=== PATIENT | male | born 1935 | race Caucasian/White ===

== ENCOUNTER 2024-08-23 09:39 | Inpatient (IN) | payer MEDICARE, OTHER, SELFPAY ==
[2024-08-23] VITALS (17 sets, daily range): BP systolic 120–159; BP diastolic 78–93; BMI 25.9
--- NOTE | 2024-08-23 03:55 | ED.GENMED ---
History of Present Illness
General
Chief Complaint: Breathing Problem
Source: patient
Exam Limitations: none
Time Seen by Provider: 08/23/24 03:52
Nursing documentation reviewed up to this point in time: agreed with
History of Present Illness
History of Present Illness:
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
With patient's history of interstitial pneumonitis, patient is on 2 L of oxygen at all times. He follows with a predatory animal trapper in [place]. Patient reports that he is getting ready for bed when he suddenly started to feel anxious and felt
tremors and look down at his pulse ox and noticed that his pulse ox was 80%. He felt woozy nauseous at this time as well. He denies any syncopal episodes patient states that his baseline pulse ox is usually 90 to 92% on room air. Patient denies
any sensation of shortness of breath at this time or chest pain. Patient states that in general he just feels off. Of note, patient is currently being weaned down on steroids. Patient was being weaned from 20 to 10 mg of prednisone however he
started to be symptomatic with this and thus he was returned to his 20 mg daily.
Past History
Past History
ED Past Medical History: HTN and Hypercholesterolemia
Social History
Tobacco: Non-smoker
Employment: Retired
Review of Systems
Review of Systems
All Other Systems: ROS reviewed and negative except as documented in HPI and ROS
Phy Exam
Physical Exam
Physical Exam:
General: Patient is well appearing and in no acute distress; non-toxic
Skin: Warm and dry, no rashes or lesions
Head: Normocephalic, atraumatic
Eyes: Sclera non-icteric. EOMs intact. PERRLA.
Cardiac: Regular rate and rhythm, no murmur
Peripheral Vascular: No lower extremity swelling or edema
Pulm: Increased respiratory rate, crackles heard throughout
Abdomen: No abdominal tenderness to palpation
Neuro: CN II-XII intact, no focal neurologic deficits.
Psychiatric: Appropriate mood and affect.
Scores
Heart Failure Risk
Heart Failure Risk Score: Not Applicable
Course
Orders/Labs/Results
Orders:
Orders
08/23/24 03:49
Electrocardiogram (*1) Urgent
Reason for Study: Shortness of Breath
08/23/24 03:50
EKG- Treatment ONCE
CXR2 [CR Chest - 2 Views ] Urgent
Comment:
Reason For Exam: shortness of breath
08/23/24 03:58
CMP [Comprehensive Metabolic Panel] Urgent
COVID-19 Antigen Urgent
Source: Nasal Swab
Complete Blood Count/With Diff Urgent
Troponin I Urgent
INF RAPID [Influenza A+B Rapid Molecular] Urgent
ANN Source: Nasal Swab
Specimen Description:
08/23/24 04:19
pacemaker [Interrogate Pacemaker- Treatment] ONCE
08/23/24 05:55
CT Chest PE Study Urgent
Comment:
Reason For Exam: hypoxia, hx of interstitial lung disease
Abnormal Lab Results
08/23/24
03:58
WBC 11.5 H 10^3/uL
(4.8-10.8)
RBC 4.49 L 10^6/uL
(4.70-6.10)
MCH 31.6 H pg
(27.0-31.0)
MPV 10.9 H fL
(7.4-10.4)
Abs Immat Gran (auto) 0.3 H 10^3/uL
(0-0.05)
Absolute Neuts (auto) 8.0 H 10^3/uL
(1.4-6.5)
Absolute Monos (auto) 0.8 H 10^3/uL
(0.1-0.6)
Immature Gran % 2.3 H %
(0-0.5)
Lymphocytes % 20.2 L %
(20.5-51.1)
BUN 26 H mg/dl
(9-20)
Glucose 129 H mg/dl
(70-99)
08/23/24 03:58
08/23/24 03:58
Vital Signs
Initial and Last Documented VS:
Initial Vital Signs
Temp Pulse Resp BP Pulse Ox
98.1 F 78 24 150/86 92
08/23/24 03:21 08/23/24 03:21 08/23/24 03:21 08/23/24 03:21 08/23/24 03:21
Last Documented Vital Signs
Temp Pulse Resp BP Pulse Ox
98.3 F 64 15 139/89 94
08/23/24 04:00 08/23/24 06:43 08/23/24 06:43 08/23/24 06:43 08/23/24 06:43
MDM/Problems Addressed
Differential Diagnosis Includes:
Differentials include pneumonia, PE, progressive interstitial disease, dysrhythmia
MDM/Problems Addressed:
89-year-old male presents emergency department today with concerns of shortness of breath when ambulating and feeling of nausea and anxiety when changing positions. Does have a history of interstitial lung disease and is on daily prednisone and is
on 2 L of oxygen at baseline. On physical exam he appears comfortable however when we do ambulate him his pulse ox does drop to the 70s and 80s percent on his usual 2 to 3 L. [employer] report does not show any evidence of new dysrhythmia, troponin
undetectable. CT scan negative for pneumonia or PE however in light of significant new change, inability to do ADLs, pulmonology appointment multiple weeks away, will admit for further evaluation and assessment. Patient referred for admission.
Case discussed with attending
*Pulse Oximetry
Patient hypoxic: yes
*EKG
Interpreted by ED Provider?: Yes
EKG Intrepretation Date: 08/23/24
Interpretation: abnormal
Comparison EKG: changes noted
Heart Rate: 65
Rate: normal
Interval: normal QT interval and other (Bifascicular block)
*Critical Care Note
Total Time (30-74mins, 75-104mins- exclusive of procedures): Not Applicable
Data Reviewed
Review of Other/Old Records Reveals: Records (Reviewed [employer], no previous discharge summary, reviewed ER physician mentation from 09/15/2009 patient seen for palpitations)
Source: patient and records
ED Attending Note
-
Portions of this chart may have been created with voice recognition software.� Occasional wrong word or��sound alike� substitutions may have occurred due to the inherent limitations of voice recognition software.
Discharge Plan
Departure
Patient Disposition: Admit
Date of Disposition: 08/23/24
Time of Disposition: 07:45
Admit to: Med/Surg
Presentation/result/management discussed w/ accepting MD/DO: Hospitalist
Patient with high blood pressure during this ER visit?: No
Condition: Fair
Discharge Problem:
Interstitial pneumonitis, Hypoxia
Prescriptions:
No Action
atorvastatin 40 MG tablet
40 mg PO QPM
atenolol [Tenormin] 100 MG tablet
100 mg PO DAILY
aspirin 81 MG tablet,delayed release (DR/EC)
81 mg PO DAILY
diltiazem HCl [Cardizem] 120 mg Tablet
120 mg PO BID
Eliquis 5 mg Tablet
5 mg PO BID
Referrals:
Don Ward MD [Family Provider] -
Interventions
Interventions:
*Risk Screen - Suicide Last Done: 08/23/24 03:21
*General Assessment Last Done: 08/23/24 03:53
*Neglect/Abuse Screening Last Done: 08/23/24 03:21
*ED- Fall Risk Assessment Last Done: 08/23/24 03:53
*ED COVID-19 Vaccine History Last Done: 08/23/24 03:53
ED-Skin Assessment Last Done: 08/23/24 03:50
ED- Pulmonary Assessment Last Done: 08/23/24 03:50
ED-Psychological Assessment Last Done: 08/23/24 03:50
ED-EENT Assessment Last Done: 08/23/24 03:50
ED- Cardiac Assessment Last Done: 08/23/24 03:50
Discharge Date and Time
Print Language: GEORGIAN
[2024-08-23 04:16] LABS: % Basophils 0.5 % (0-2); % Eosinophils 0.9 % (0-6); % Immature Granulocytes 2.3 % (0-0.5); % Lymphocytes 20.2 % (20.5-51.1); % Monocytes 6.6 % (1.7-9.3); % Neutrophils 69.5 % (42.2-75.2); Absolute Basophils 0.1 10^3/uL (0-0.2); Absolute Eosinophils 0.1 10^3/uL (0-0.7); Absolute Immature Granulocytes 0.3 10^3/uL (0-0.05); Absolute Lymphocytes 2.3 10^3/uL (1.2-3.4); Absolute Monocytes 0.8 10^3/uL (0.1-0.6); Hemoglobin 14.2 g/dL (13.0-18.0); Mean Corp Hgb Conc. 34.6 g/dL (33.0-37.0); Mean Corpuscular Hgb 31.6 pg (27.0-31.0); Mean Corpuscular Volume 91.3 fL (80.0-94.0); Mean Platelet Volume 10.9 fL (7.4-10.4); Nucleated Red Blood Cells % 0 % (-); Platelet Count 203 10^3/uL (130-400); Red Blood Cell Count 4.49 10^6/uL (4.70-6.10); Red Cell Dist. Width 13.2 % (11.5-14.5); White Blood Cell Count 11.5 10^3/uL (4.8-10.8)
[2024-08-23 04:24] LABS: COVID-19 Antigen Negative (Negative)
[2024-08-23 04:36] LABS: ALT (SGPT) 31 U/L (0-50); AST (SGOT) 22 U/L (17-59); Albumin 3.9 g/dl (3.5-5.0); Alkaline Phosphatase 63 U/L (38-126); Blood Urea Nitrogen 26 mg/dl (9-20); Calcium 9.9 mg/dl (8.4-10.2); Carbon Dioxide 26 mmol/L (22-30); Chloride 106 mmol/L (98-107); Estimated Creatinine Clearance 60 ml/min; Glucose 129 mg/dl (70-99); Potassium 4.1 mmol/L (3.5-5.1); Sodium 142 mmol/L (135-145); Total Bilirubin 0.6 mg/dl (0.2-1.3); Total Protein 6.9 g/dl (6.3-8.2); eGFR > 60.00
[2024-08-23 04:48] LABS: Troponin I < 0.012 ng/ml
--- NOTE | 2024-08-23 07:44 | EDRN ---
this RN noticed that the pt was 90% on 2L NC, this RN entered the pts room and the pt has no c/o SOB, no c/o chest pain, this RN notified the provider and titrated the pts 02 from 2L to 4L NC, Sp02 currently 98%
--- NOTE | 2024-08-23 09:00 | HPS.HSE ---
Family Physician
-
Family Physician: Don Ward
Chief Complaint
-
Dyspnea on exertion
History of Present Illness
Mr. Brady is a 89-year-old male with a medical history of paroxysmal A-fib (previously on amiodarone which was discontinued in February 2024 due to possible contribution to ILD, AC with Eliquis), permanent pacemaker, interstitial lung disease (2 L
O2 at baseline), and hypertension who presented from home with dyspnea on exertion. He had been on low-dose amiodarone for approximately 8 years for A-fib which was discontinued in February 2024 its possible contribution to his development of
interstitial lung disease. He has been on a slow tapering dose of prednisone since that time with input from his shower attendant in [place], [place] (Dr. Ward). He began feeling fatigued once he was tapered down to 10 mg of prednisone every
other day and so his prednisone dose was increased back to 20 mg daily. Over the past week he has been increasingly dyspneic with minimal exertion. His pulse ox had been dipping to the high 80s on 2 L oxygen but recovered quickly with rest and
increasing his flow rate. He has an appointment with his shower attendant in 2 weeks but does not feel he could wait until then for further evaluation. 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
In the ED, he has remained normotensive and his pulse ox has remained in the mid 90s on increased rate of 4 L via nasal cannula. He has a mild leukocytosis of 11.5 likely due to chronic steroid use, and has labs are otherwise unremarkable. CT
imaging of his chest shows moderate inflammatory interstitial pneumonitis in the periphery of both lungs. He has been admitted for further evaluation and management of acute on chronic respiratory failure with hypoxia in the setting of interstitial
lung disease flare.
Medical History
Past Medical History
Past Medical History: Reports Arrhythmia (A-fib, permanent pacemaker), HTN and Other (Interstitial lung disease)
Past Surgical History: Reports Urological (Bladder surgery)
Social History
Tobacco: Non-smoker
Alcohol: Occasional
Drug: None
Personal:
Living: With Family
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
Family History
Family History: Not pertinent
Allergies / Home Medications
Allergies reflects when Allergies were last updated in [email or web address].
Home Medications with original date entered in [email or web address]
Allergy/Medication List:
Allergies
Allergy/AdvReac Type Severity Reaction Status Date / Time
No Known Allergies Allergy Unverified 09/15/09 00:32
Home Medications
aspirin 81 mg tablet,delayed release 81 mg PO DAILY 09/15/09
atorvastatin 40 mg tablet 40 mg PO QPM 09/15/09
apixaban 5 mg tablet (Eliquis) 5 mg PO BID 08/23/24
atenolol 50 mg tablet 50 mg PO DAILY 08/23/24
diltiazem HCl 120 mg tablet (Cardizem) 120 mg PO BID 08/23/24
prednisone 10 mg tablet 20 mg PO DAILY 08/23/24
Review of Systems
-
History Source: Patient
A 12 point ROS was completed and negative except as noted: Yes
Respiratory: Reports Trouble Breathing (Dyspnea with minimal exertion)
Physical Exam
Vital Signs
Vital Signs
Temp Pulse Resp BP Pulse Ox
98.3 F 64 15 139/89 94
08/23/24 04:00 08/23/24 06:43 08/23/24 06:43 08/23/24 06:43 08/23/24 06:43
Physical Exam
General: No Apparent Distress
Laboratory Results
-
08/23/24 03:58
08/23/24 03:58
Laboratory Results
Total Bilirubin 0.6 mg/dl (0.2-1.3) 08/23/24 03:58
AST 22 U/L (17-59) 08/23/24 03:58
ALT 31 U/L (0-50) 08/23/24 03:58
Alkaline Phosphatase 63 U/L (38-126) 08/23/24 03:58
Troponin I < 0.012 ng/ml 08/23/24 03:58
Impression/Plan
-
General: No Apparent Distress, Comfortable and Conversant
HEENT: NormoCephalic, Moist mucous membranes, nasal cannula in place
Respiratory: Non Labored Respirations, inspiratory crackles bilaterally
Cardiac: S1/S2 and Regular Rhythm; No Rub or Gallop
GI: Soft, Non Tender, Non Distended and Normal Bowel Sounds
Musculoskeletal: No Edema, no deformity
Skin: Warm and dry
: NO Harris
Neuro: Awake, Alert, Nonfocal/grossly intact
Psych: Calm and Intact Judgment/Insight
Mr. Brady is a 89-year-old male with a medical history of paroxysmal A-fib (previously on amiodarone which was discontinued in February 2024 due to possible contribution to ILD, AC with Eliquis), permanent pacemaker, interstitial lung disease (2 L
O2 at baseline), and hypertension who presented from home with dyspnea on exertion. He had been on low-dose amiodarone for approximately 8 years for A-fib which was discontinued in February 2024 its possible contribution to his development of
interstitial lung disease. He has been on a slow tapering dose of prednisone since that time with input from his shower attendant in [place], [place] (Dr. Ward). He began feeling fatigued once he was tapered down to 10 mg of prednisone every
other day and so his prednisone dose was increased back to 20 mg daily. Over the past week he has been increasingly dyspneic with minimal exertion. His pulse ox had been dipping to the high 80s on 2 L oxygen but recovered quickly with rest and
increasing his flow rate. He has an appointment with his shower attendant in 2 weeks but does not feel he could wait until then for further evaluation. 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
In the ED, he has remained normotensive and his pulse ox has remained in the mid 90s on increased rate of 4 L via nasal cannula. He has a mild leukocytosis of 11.5 likely due to chronic steroid use, and has labs are otherwise unremarkable. CT
imaging of his chest shows moderate inflammatory interstitial pneumonitis in the periphery of both lungs. He has been admitted for further evaluation and management of acute on chronic respiratory failure with hypoxia in the setting of interstitial
lung disease flare.
Acute on chronic respiratory failure with hypoxia:
- Suspect secondary to flare of interstitial lung disease
- Supplemental oxygen now with 4 L via nasal cannula, he uses 2 L at baseline, titrate as able to maintain O2 sats greater than 94%
- Pulmonology consult
- Prednisone 20 mg daily for now
Interstitial lung disease with acute flare:
- Plan as above
Paroxysmal A-fib:
- Continue rate control with diltiazem
- Anticoagulation with Eliquis
Hypertension:
- Continue home atenolol 50 mg daily
CODE STATUS: Full code
--- NOTE | 2024-08-23 10:37 | EDRN ---
this RN processed admission orders for the pt and notified the pharmacy
--- NOTE | 2024-08-23 11:13 | CON.PUL ---
Consultation
Consultation Request
Date/Time Consultation Requested: 08/23/2024
Date/Time Consultation Performed: 08/23/2024
Requesting Provider: Anthony Saucedo
Performing Provider: Saji Hinds
Reason for Consultation: Shortness of breath
Medical History
-
Chief Complaint: Dyspnea
History of Present Illness:
Patient is a very pleasant 89-year-old gentleman with known history of paroxysmal A-fib, chronically had been on anticoagulation and amiodarone up until February 2024. Patient reportedly developed a cough and shortness of breath with hypoxia in
February 2024 which required a hospitalization. He was suspected to have interstitial lung disease related to amiodarone. Amiodarone was subsequently discontinued. He follows up with a hotel reservation agent in [place] in [place]. Patient reports that
he has had extensive workup in the past including connective tissue panel, eosinophil count and other studies. 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 Patient reports he was
started on 40 mg of prednisone with good improvement in his symptoms which was subsequently tapered to 30 and then eventually 20 mg. Once he dropped below to 10 mg every other day his symptoms started to worsen again and he was switched back to 20
of prednisone daily. Over the last week patient reports some increased dyspnea minimal change in cough without any expectoration. Yesterday he found himself to be hypoxic with oxygen saturation in mid 80s along with some tremors and anxiety. This
led to an emergency room evaluation where he was noted to be hypoxic requiring oxygen supplementation. He had a CT which was suggestive of NSIP pattern. Pulmonary consultation was requested for further input.
Patient has no known pulmonary disease. No prior history of asthma, emphysema or COPD. He smoked very briefly many decades ago. No reported history of marijuana or vaping. Patient has dogs at home but no exposure to birds. Has a swimming pool
but does not report any exposure to hot tub. No reported occupational exposure other than formaldehyde. 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 No family history of cystic fibrosis interstitial lung disease or IPF.
Past Medical History: Reports Arrhythmia (A-fib, permanent pacemaker), HTN and Other (Interstitial lung disease)
Past Surgical History: Reports Urological (Bladder surgery)
Social History
Tobacco: Non-smoker. 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
Alcohol: Occasional
Drug: None
Personal:
Living: With Family
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
Family History
Family History: Not pertinent
Allergies / Home Medications
Allergies reflects when Allergies were last updated in [facility].
Allergies / Home Medications
Allergies
Allergy/AdvReac Type Severity Reaction Status Date / Time
No Known Allergies Allergy Unverified 09/15/09 00:32
Home Medications
�Medication �Instructions �Recorded �Confirmed �Last Taken �Type
aspirin 81 mg tablet,delayed 81 mg PO DAILY 09/15/09 08/23/24 09/14/09 History
release
atorvastatin 40 mg tablet 40 mg PO QPM 09/15/09 08/23/24 09/14/09 History
apixaban 5 mg tablet (Eliquis) 5 mg PO BID 08/23/24 08/23/24 08/22/24 History
atenolol 50 mg tablet 50 mg PO DAILY 08/23/24 08/23/24 08/22/24 History
diltiazem HCl 120 mg 120 mg PO BID 08/23/24 08/23/24 Unknown History
capsule,extended release 24 hr
prednisone 10 mg tablet 20 mg PO DAILY 08/23/24 08/23/24 08/22/24 History
Review of Systems
-
Hematologic/Lymphatic: Other (All 14 systems reviewed and negative except as stated above in the history of present illness.)
Vitals / Labs / Diagnostic Testing
Vital Signs
Temp Pulse Resp BP Pulse Ox
98.3 F 60 20 120/79 97
08/23/24 04:00 08/23/24 10:30 08/23/24 10:00 08/23/24 10:00 08/23/24 10:30
Lab Data
08/23/24 03:58
08/23/24 03:58
Microbiology
08/23/24 03:58 Nasal Swab Influenza Types A & B (FABIAN) - Final
Negative for Influenza A & B, NAAT
Negative results must be combined with clinical observations
and patient history.
Nucleic Acid Amplification test (NAAT)performed on the
[employer] NOW platform.
Diagnostic Testing:
Physical Exam
-
HEENT: Normocephalic
Cardiovascular: S1/S2
Respiratory: Rales (Bilateral lower lobe few inspiratory crackles noted. No wheezing on exam. No sensory muscle use.)
GI: Soft and Non Distended
Neurology: Awake and Alert
Skin: Warm
General: Comfortable
Assessment
-
#1. Acute on chronic hypoxic respiratory failure.
-This appears to be in the setting of exacerbation of underlying interstitial lung disease.
-CT reviewed and bilateral moderate amount of groundglass opacities noted
-Continue supplemental O2 to keep saturations above 90%
#2. 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
-[place] to be related to amiodarone which has been discontinued since February 2024. Other differential diagnosis include connective tissue disease, hypersensitive pneumonitis, idiopathic versus hypereosinophilic syndrome. Patient reports extensive
workup in the past unrevealing and follows with a hotel reservation agent in [place]. Eosinophil count normal now but patient reports that it was close to 1000 when he was initially diagnosed with ILD in February 2024. COVID-19 and influenza screen
negative. No definitive consolidation suggestive of pneumonia noted on imaging. No pulmonary embolism reported.
-Await records from pulmonary clinic
-Check CRP and ESR level. Clinically patient does not appear to be volume overloaded. Check proBNP
-Hold oral prednisone, Solu-Medrol 60 mg IV x 1 today followed by prednisone 40 mg daily starting 08/24
-Patient reportedly has been on steroids since February last year and lately the dose was around 20 mg. He is expected to be on steroid going forward again, we will start PJP prophylaxis with Bactrim double strength 1 tablet Thursday
-Considering patient's symptoms worsened after dropping the steroid dose, will need to consider a steroid sparing agent going forward possibly mycophenolate versus azathioprine. This will need to be discussed with patient's primary hotel reservation agent
and can be pursued as outpatient
-No indication for antibiotics.
Other medical diagnoses:
-Paroxysmal A fib, s/p PPI, on barrow worker Anticoagulation
-HTN
Total time spent on this consultation/encounter _75___ minutes which includes review of history, physical exam, medications, laboratory data, personal review of imaging, extensive review of outpatient records, discussion with care team and
respiratory therapy.
Data:
CT Chest 08/2024: 1. MODERATE INFLAMMATORY INTERSTITIAL PNEUMONITIS in the periphery of both lungs (possibly nonspecific interstitial pneumonitis - NSIP).
2. Severe calcific atherosclerotic plaque in the coronary arteries.
3. Moderate elevation of the right hemidiaphragm.
4. 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
5. 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
CXR 08/2024: Elevated right hemidiaphragm.
Some predominantly interstitial opacities which although may be chronic, cannot exclude interstitial pneumonitis or edema.
[2024-08-23] MEDS: ASPIR LOW (ENTERIC COATED) 81 MG PO (11:38)
[2024-08-23] MEDS: DELTASONE 20 MG PO (11:38)
[2024-08-23] MEDS: TENORMIN 50 MG PO (11:38)
[2024-08-23] MEDS: ELIQUIS 5 MG PO ×2 (11:38→20:23)
[2024-08-23] MEDS: CARDIZEM CD 120 MG PO ×2 (11:39→20:23)
--- NOTE | 2024-08-23 11:46 | EDRN ---
AM medications administered to the pt, the pt was able to take PO medications with water with no issues, this RN provided the pt with a menu and provided the pt with the phone when he is ready to order his food
--- NOTE | 2024-08-23 11:48 | EDRN ---
pacemaker interrogated this AM, [employer] PPM
--- NOTE | 2024-08-23 13:22 | EDRN ---
this RN called the receiving unit and notified them that paper report was going to be tubed up
--- NOTE | 2024-08-23 14:26 | PTCARENOTE ---
Patient arrived to unit. VSS. Patient remains on 4L NC, O2 sat 93%. Patient AAOx4. Patient tolerating ambulating from stretcher to bed. call mcgarry in reach. safety maintained.
[2024-08-23 14:33] LABS: Erythrocyte Sed Rate 6 mm/hour (0-20)
[2024-08-23] MEDS: BACTRIM DS 800 MG/160 MG 1 TABLET PO (14:59)
[2024-08-23 15:06] LABS: NT-proBNP 224 pg/ml
[2024-08-23 15:29] LABS: C-Reactive Protein < 5.00 mg/L (0.0-10.00)
[2024-08-23] MEDS: LIPITOR 40 MG PO (17:08)
[2024-08-24 03:27] VITALS: BP 116/83
[2024-08-24 06:00] VITALS: BMI 26.3
[2024-08-24 07:30] VITALS: BP 132/90
[2024-08-24 07:53] LABS: Hematocrit 40.1 % (39.0-52.0); Hemoglobin 13.5 g/dL (13.0-18.0); Mean Corp Hgb Conc. 33.7 g/dL (33.0-37.0); Mean Platelet Volume 10.4 fL (7.4-10.4); Platelet Count 184 10^3/uL (130-400); Red Blood Cell Count 4.36 10^6/uL (4.70-6.10); Red Cell Dist. Width 13.3 % (11.5-14.5); White Blood Cell Count 10.8 10^3/uL (4.8-10.8)
[2024-08-24] MEDS: DELTASONE 40 MG PO (08:08)
[2024-08-24] MEDS: ELIQUIS 5 MG PO ×2 (08:08→19:30)
[2024-08-24] MEDS: CARDIZEM CD 120 MG PO ×2 (08:09→19:30)
[2024-08-24] MEDS: ASPIR LOW (ENTERIC COATED) 81 MG PO (08:09)
[2024-08-24] MEDS: TENORMIN 50 MG PO (08:10)
[2024-08-24 08:41] LABS: Blood Urea Nitrogen 20 mg/dl (9-20); Calcium 9.6 mg/dl (8.4-10.2); Carbon Dioxide 28 mmol/L (22-30); Chloride 103 mmol/L (98-107); Estimated Creatinine Clearance 60 ml/min; Glucose 90 mg/dl (70-99); Potassium 4.3 mmol/L (3.5-5.1); Sodium 141 mmol/L (135-145); eGFR > 60.00
[2024-08-24 11:33] VITALS: BP 140/82
--- NOTE | 2024-08-24 11:34 | W.PN.PUL3 ---
Today's Communication / Plan
-
- Continue prednisone 40 mg daily and Bactrim for PJP prophylaxis
- Increase activity as tolerated and monitor oxygen saturation while ambulating
- Discharge planning, anticipate 08/25
Assessment
-
Patient is a very pleasant 89-year-old gentleman with known history of paroxysmal A-fib, chronically had been on anticoagulation and amiodarone up until February 2024. Patient reportedly developed a cough and shortness of breath with hypoxia in
February 2024 which required a hospitalization. He was suspected to have interstitial lung disease related to amiodarone. Amiodarone was subsequently discontinued. He follows up with a card clothier in [place] in [place]. Patient reports that
he has had extensive workup in the past including connective tissue panel, eosinophil count and other studies. 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 Patient reports he was
started on 40 mg of prednisone with good improvement in his symptoms which was subsequently tapered to 30 and then eventually 20 mg. Once he dropped below to 10 mg every other day his symptoms started to worsen again and he was switched back to 20
of prednisone daily. Over the last week patient reports some increased dyspnea minimal change in cough without any expectoration. Yesterday he found himself to be hypoxic with oxygen saturation in mid 80s along with some tremors and anxiety. This
led to an emergency room evaluation where he was noted to be hypoxic requiring oxygen supplementation. He had a CT which was suggestive of NSIP pattern. Pulmonary consultation was requested for further input.
Patient has no known pulmonary disease. No prior history of asthma, emphysema or COPD. He smoked very briefly many decades ago. No reported history of marijuana or vaping. Patient has dogs at home but no exposure to birds. Has a swimming pool
but does not report any exposure to hot tub. No reported occupational exposure other than formaldehyde. 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 No family history of cystic fibrosis interstitial lung disease or IPF.
#1. Acute on chronic hypoxic respiratory failure.
-This appears to be in the setting of exacerbation of underlying interstitial lung disease.
-CT reviewed and bilateral moderate amount of groundglass opacities noted
-Continue supplemental O2 to keep saturations above 90%
#2. 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
-[place] to be related to amiodarone which has been discontinued since February 2024. Other differential diagnosis include connective tissue disease, hypersensitive pneumonitis, idiopathic versus hypereosinophilic syndrome. Patient reports extensive
workup in the past unrevealing and follows with a card clothier in [place]. Eosinophil count normal now but patient reports that it was close to 1000 when he was initially diagnosed with ILD in February 2024. COVID-19 and influenza screen
negative. No definitive consolidation suggestive of pneumonia noted on imaging. No pulmonary embolism reported.
-Await records from pulmonary clinic
-Clinically patient does not appear to be volume overloaded. Pro-BNP reassuring
-s/p Solu-Medrol 60 mg IV x 1 08/23, now on Prednisone 40 mg daily with PJP prophyalxis
-Considering patient's symptoms worsened after dropping the steroid dose, will need to consider a steroid sparing agent going forward possibly mycophenolate versus azathioprine. This will need to be discussed with patient's primary card clothier
and can be pursued as outpatient
-No indication for antibiotics.
Other medical diagnoses:
-Paroxysmal A fib, s/p PPI, on buttermaker Anticoagulation
-HTN
I called and discussed with patient's card clothier, Dr. Weathers and went over previous images shared by him.
Total time spent on this consultation/encounter _45___ minutes which includes review of history, physical exam, medications, laboratory data, personal review of imaging, extensive review of outpatient records, discussion with care team and
respiratory therapy.
Data:
CT Chest 08/2024: 1. MODERATE INFLAMMATORY INTERSTITIAL PNEUMONITIS in the periphery of both lungs (possibly nonspecific interstitial pneumonitis - NSIP).
2. Severe calcific atherosclerotic plaque in the coronary arteries.
3. Moderate elevation of the right hemidiaphragm.
4. 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
5. 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
CXR 08/2024: Elevated right hemidiaphragm.
Some predominantly interstitial opacities which although may be chronic, cannot exclude interstitial pneumonitis or edema.
Subjective Data
-
Date of Service:
Date of Service: August 24, 2024
Subjective:
Patient comfortably sitting in bed in no acute distress.
Review of Systems
Genitourinary: Other (No new symptoms reported.)
Objective Data
Data Reviewed
Vital Signs / I&O / Oxygen:
Vital Signs
Temp Pulse Resp BP Pulse Ox
97.8 F 67 20 140/82 98
08/24/24 11:33 08/24/24 11:33 08/24/24 11:33 08/24/24 11:33 08/24/24 11:33
Intake and Output
08/23/24 08/24/24 08/25/24
06:59 06:59 06:59
Intake Total 480 / 480
Output Total 1000 / 1000 250 / 250
Balance -520 / -520 -250 / -250
SaO2 98
Nasal Cannula flow liters per 4
minute
Physical Exam
General: Comfortable
HEENT: Normocephalic
Cardiovascular: S1-S2
Respiratory: Clear and Non-Labored Respirations
GI: Soft and Non Distended
Neurology: Awake and Alert
Skin: Warm
Labs/Micro/Reports
Lab Data
08/24/24 07:21
08/24/24 07:21
Microbiology
08/23/24 03:58 Nasal Swab Influenza Types A & B (FABIAN) - Final
Negative for Influenza A & B, NAAT
Negative results must be combined with clinical observations
and patient history.
Nucleic Acid Amplification test (NAAT)performed on the
[employer] platform.
--- NOTE | 2024-08-24 13:35 | W.PN.HOSP.TC ---
Today's Communication/Plan
-
Assessment / Plan
Assessment / Plan
General: No Apparent Distress, Comfortable and Conversant
HEENT: NormoCephalic, Moist mucous membranes, nasal cannula in place
Respiratory: Non Labored Respirations, inspiratory crackles bilaterally
Cardiac: S1/S2 and Regular Rhythm; No Rub or Gallop
GI: Soft, Non Tender, Non Distended and Normal Bowel Sounds
Musculoskeletal: No Edema, no deformity
Skin: Warm and dry
: NO Harris
Neuro: Awake, Alert, Nonfocal/grossly intact
Psych: Calm and Intact Judgment/Insight
Mr. Brady is a 89-year-old male with a medical history of paroxysmal A-fib (previously on amiodarone which was discontinued in February 2024 due to possible contribution to ILD, AC with Eliquis), permanent pacemaker, interstitial lung disease (2 L
O2 at baseline), and hypertension who presented from home with dyspnea on exertion. He had been on low-dose amiodarone for approximately 8 years for A-fib which was discontinued in February 2024 its possible contribution to his development of
interstitial lung disease. He has been on a slow tapering dose of prednisone since that time with input from his hydrometer tester in [place], [place] (Dr. Ward). He began feeling fatigued once he was tapered down to 10 mg of prednisone every
other day and so his prednisone dose was increased back to 20 mg daily. Over the past week he has been increasingly dyspneic with minimal exertion. His pulse ox had been dipping to the high 80s on 2 L oxygen but recovered quickly with rest and
increasing his flow rate. He has an appointment with his hydrometer tester in 2 weeks but does not feel he could wait until then for further evaluation. 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
In the ED, he has remained normotensive and his pulse ox has remained in the mid 90s on increased rate of 4 L via nasal cannula. He has a mild leukocytosis of 11.5 likely due to chronic steroid use, and has labs are otherwise unremarkable. CT
imaging of his chest shows moderate inflammatory interstitial pneumonitis in the periphery of both lungs. He was admitted for further evaluation and management of acute on chronic respiratory failure with hypoxia in the setting of interstitial lung
disease flare.
Acute on chronic respiratory failure with hypoxia:
- Suspect secondary to flare of interstitial lung disease
- He uses 2 L at baseline, was on 4 L via nasal cannula at time of admission, has now been titrated down to 3 L, titrate as able to maintain O2 sats greater than 94%
- Pulmonology following, gave a dose of IV Solu-Medrol 60 mg yesterday and recommend starting prednisone 40 mg daily today, will titrate as able likely down to 20 mg daily
- Outpatient pulmonology records pending
- ESR and CRP within normal limits
- Would likely benefit from eventual steroid sparing agent such as mycophenolate or azathioprine which would be started and monitored in the outpatient setting
Interstitial lung disease with acute flare:
- Nonspecific interstitial pneumonitis
- Starting on PJP prophylaxis with Bactrim DS 1 tablet MWF
- Rest of plan as above
Paroxysmal A-fib:
- Continue rate control with diltiazem
- Anticoagulation with Eliquis
Hypertension:
- Continue home atenolol 50 mg daily
CODE STATUS: Full code
Anticipated Discharge: 24 - 48 hours
Subjective/Interval History
-
Date of Service: August 24, 2024
Patient was seen and examined at sitting in chair bedside this morning. Feeling well and breathing comfortably at rest on 3 L via nasal cannula.
Objective Data
-
Labs:
Laboratory Results
08/24/24
07:21
WBC 10.8
Hgb 13.5
Hct 40.1
Plt Count 184
Sodium 141
Potassium 4.3
Chloride 103
Carbon Dioxide 28
BUN 20
Creatinine 0.9
Glucose 90
Calcium 9.6
Vital Signs:
Vital Signs
Temp Pulse Resp BP Pulse Ox
97.8 F 67 20 140/82 98
08/24/24 11:33 08/24/24 11:33 08/24/24 11:33 08/24/24 11:33 08/24/24 11:33
I&O
08/23/24 08/24/24 08/25/24
06:59 06:59 06:59
Intake Total 480 / 480
Output Total 1000 / 1000 250 / 250
Balance -520 / -520 -250 / -250
Review of Systems
-
History Source: Patient
All other systems: Reviewed and negative
Physical Exam
-
General: No Apparent Distress
[2024-08-24 15:53] VITALS: BP 152/85
--- NOTE | 2024-08-24 16:23 | CM ---
community case manager reviewed patient's chart and patient is independent with adl's and ambulation, has been cleared for discharge to home today, no needs.
Plan; Home no needs, IMM given
[2024-08-24] MEDS: LIPITOR 40 MG PO (17:02)
[2024-08-24 23:09] VITALS: BP 127/82
[2024-08-25 07:30] VITALS: BP 141/86
[2024-08-25] MEDS: ELIQUIS 5 MG PO (08:14)
[2024-08-25] MEDS: CARDIZEM CD 120 MG PO (08:15)
[2024-08-25] MEDS: ASPIR LOW (ENTERIC COATED) 81 MG PO (08:15)
[2024-08-25] MEDS: TENORMIN 50 MG PO (08:15)
[2024-08-25] MEDS: DELTASONE 40 MG PO (08:15)
--- NOTE | 2024-08-25 11:01 | W.DCSUMMARY ---
Discharge Summary
Discharge Data
Date of Admission: 08/23/24
Date of Discharge: 08/25/24
-
Pending Results: No
Hospital Course
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
with dyspnea on exertion. He had been on low-dose amiodarone for approximately 8 years for A-fib which was discontinued in February 2024 due to its possible contribution to his development of interstitial lung disease. He has been on a slow
tapering dose of prednisone since that time with input from his patch finisher in [place] (Dr. Ward). He began feeling fatigued once he was tapered down to 10 mg of prednisone every other day and so his prednisone dose was increased
back to 20 mg daily. Over the past week prior to arrival he had been increasingly dyspneic with minimal exertion. His pulse ox had been dipping to the high 80s on 2 L oxygen but recovered quickly with rest and increasing his flow rate. He has an
appointment with his patch finisher in 2 weeks but did not feel he could wait until then for further evaluation. 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
In the ED, he remained normotensive and his pulse ox has remained in the mid 90s on increased rate of 4 L via nasal cannula. He had a mild leukocytosis of 11.5 likely due to chronic steroid use, and has labs were otherwise unremarkable. CT imaging
of his chest showed moderate inflammatory interstitial pneumonitis in the periphery of both lungs. He was admitted for further evaluation and management of acute on chronic respiratory failure with hypoxia in the setting of interstitial lung
disease flare.
He was given a dose of steroids initially with Solu-Medrol IV 60 mg x 1, and then continued on oral prednisone 40 mg daily. He was evaluated by pulmonology who recommended continuing prednisone 40 mg for 3 weeks, then titrating down to 30 mg for 3
weeks, and finally titrating to 20 mg indefinitely until follow-up with his outpatient patch finisher. He will likely need to be started on a steroid sparing agent such as mycophenolate or azathioprine in the outpatient setting. He was started on
Bactrim DS 1 tablet MWF for PJP prophylaxis which he will continue after discharge. He continued to be dyspneic with exertion but is able to quickly recover with rest. He will be able to be discharged to home with close outpatient pulmonology
follow-up. He was medically stable at time of hospital discharge. Our inpatient patch finisher discussed the plan of care with the patient's primary patch finisher in [place] (Dr. Ward). The patient has a pulmonology appointment in a
few weeks.
General: No Apparent Distress, Comfortable and Conversant
HEENT: NormoCephalic, Moist mucous membranes, nasal cannula in place
Respiratory: Non Labored Respirations, inspiratory crackles bilaterally
Cardiac: S1/S2 and Regular Rhythm; No Rub or Gallop
GI: Soft, Non Tender, Non Distended and Normal Bowel Sounds
Musculoskeletal: No Edema, no deformity
Skin: Warm and dry
: NO Harris
Neuro: Awake, Alert, Nonfocal/grossly intact
Psych: Calm and Intact Judgment/Insight
Discharge Plan
-
Patient Disposition: Home (Routine Discharge)
Discharge Diagnosis/Procedures: Acute on chronic respiratory failure with hypoxia, nonspecific interstitial pneumonitis with acute flare
Diet: No restrictions
Activity: As tolerated
Activity Restrictions/Additional Instructions:
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
with dyspnea on exertion. He had been on low-dose amiodarone for approximately 8 years for A-fib which was discontinued in February 2024 due to its possible contribution to his development of interstitial lung disease. He has been on a slow
tapering dose of prednisone since that time with input from his patch finisher in [place] (Dr. Ward). He began feeling fatigued once he was tapered down to 10 mg of prednisone every other day and so his prednisone dose was increased
back to 20 mg daily. Over the past week prior to arrival he had been increasingly dyspneic with minimal exertion. His pulse ox had been dipping to the high 80s on 2 L oxygen but recovered quickly with rest and increasing his flow rate. He has an
appointment with his patch finisher in 2 weeks but did not feel he could wait until then for further evaluation. 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
In the ED, he remained normotensive and his pulse ox has remained in the mid 90s on increased rate of 4 L via nasal cannula. He had a mild leukocytosis of 11.5 likely due to chronic steroid use, and has labs were otherwise unremarkable. CT imaging
of his chest showed moderate inflammatory interstitial pneumonitis in the periphery of both lungs. He was admitted for further evaluation and management of acute on chronic respiratory failure with hypoxia in the setting of interstitial lung
disease flare.
He was given a dose of steroids initially with Solu-Medrol IV 60 mg x 1, and then continued on oral prednisone 40 mg daily. He was evaluated by pulmonology who recommended continuing prednisone 40 mg for 3 weeks, then titrating down to 30 mg for 3
weeks, and finally titrating to 20 mg indefinitely until follow-up with his outpatient patch finisher. He will likely need to be started on a steroid sparing agent such as mycophenolate or azathioprine in the outpatient setting. He was started on
Bactrim DS 1 tablet MWF for PJP prophylaxis which he will continue after discharge. He continued to be dyspneic with exertion but is able to quickly recover with rest. He will be able to be discharged to home with close outpatient pulmonology
follow-up. He was medically stable at time of hospital discharge. Our inpatient patch finisher discussed the plan of care with the patient's primary patch finisher in [place] (Dr. Ward). The patient has a pulmonology appointment in a
few weeks.
Referrals:
Saji Hinds MD [Active] - in one month
Don Ward MD [Family Provider] -
Prescriptions:
New
sulfamethoxazole-trimethoprim 800-160 mg Tablet
1 tab PO MoWeFr 30 Days Qty: 13 0RF
prednisone 20 mg tablet
40 mg PO DAILY 21 Days Qty: 42 0RF
Rx Instructions:
Take 40 mg for 3 weeks - through 09/14/24
prednisone 10 mg tablet
30 mg PO DAILY 21 Days Qty: 63 0RF
Rx Instructions:
Take 30 mg for 3 weeks - 09/15/24-10/05/24
prednisone 20 mg tablet
20 mg PO DAILY 21 Days Qty: 21 0RF
Rx Instructions:
Take 20 mg - 10/06/24- until further instructions from patch finisher
Continued
atorvastatin 40 MG tablet
40 mg PO QPM
aspirin 81 MG tablet,delayed release (DR/EC)
81 mg PO DAILY
Eliquis 5 mg Tablet
5 mg PO BID
atenolol 50 mg Tablet
50 mg PO DAILY
diltiazem HCl 120 mg capsule,extended release 24hr
120 mg PO BID
Discontinued
prednisone 10 mg Tablet
20 mg PO DAILY
Discharge Orders:
Discharge Patient (As Directed); Ordered 08/25/24
Ordered By: Anthony Saucedo
Discharge Date and Time
Print Language: KOREAN
--- NOTE | 2024-08-25 11:05 | CM ---
Patient spends time between 2 homes [place] and [place]. Patient reports he is independent with adl's and ambulation, drives, patient has a walker from previous admission. Patient has home oxygen from [facility] [employer].
Plan; Home today with spouse no needs.
--- NOTE | 2024-08-25 12:30 | W.PN.PUL3 ---
Today's Communication / Plan
-
-Patient stable to discharge from pulmonary standpoint
-Recommend prednisone 40 mg daily for 3 weeks, then 30 mg daily for 3 weeks, then 20 mg daily long-term until further titration by occupational therapy specialist as outpatient
-Mycophenolate or azathioprine will be considered as outpatient
-Continue PJP prophylaxis with Bactrim 1 tablet Thursday, Thursday and Thursday
-Patient scheduled for outpatient follow-up with pulmonary clinic
Assessment
-
Patient is a very pleasant 89-year-old gentleman with known history of paroxysmal A-fib, chronically had been on anticoagulation and amiodarone up until February 2024. Patient reportedly developed a cough and shortness of breath with hypoxia in
February 2024 which required a hospitalization. He was suspected to have interstitial lung disease related to amiodarone. Amiodarone was subsequently discontinued. He follows up with a occupational therapy specialist in [place] in [place]. Patient reports that
he has had extensive workup in the past including connective tissue panel, eosinophil count and other studies. 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 Patient reports he was
started on 40 mg of prednisone with good improvement in his symptoms which was subsequently tapered to 30 and then eventually 20 mg. Once he dropped below to 10 mg every other day his symptoms started to worsen again and he was switched back to 20
of prednisone daily. Over the last week patient reports some increased dyspnea minimal change in cough without any expectoration. Yesterday he found himself to be hypoxic with oxygen saturation in mid 80s along with some tremors and anxiety. This
led to an emergency room evaluation where he was noted to be hypoxic requiring oxygen supplementation. He had a CT which was suggestive of NSIP pattern. Pulmonary consultation was requested for further input.
Patient has no known pulmonary disease. No prior history of asthma, emphysema or COPD. He smoked very briefly many decades ago. No reported history of marijuana or vaping. Patient has dogs at home but no exposure to birds. Has a swimming pool
but does not report any exposure to hot tub. No reported occupational exposure other than formaldehyde. 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 No family history of cystic fibrosis interstitial lung disease or IPF.
#1. Acute on chronic hypoxic respiratory failure.
-This appears to be in the setting of exacerbation of underlying interstitial lung disease.
-CT reviewed and bilateral moderate amount of groundglass opacities noted
-Continue supplemental O2 to keep saturations above 90%
-Symptomatically improving, no cough or expectoration this morning.
#2. 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
-[place] to be related to amiodarone which has been discontinued since February 2024. Other differential diagnosis include connective tissue disease, hypersensitive pneumonitis, idiopathic versus hypereosinophilic syndrome. Patient reports extensive
workup in the past unrevealing and follows with a occupational therapy specialist in [place]. Eosinophil count normal now but patient reports that it was close to 1000 when he was initially diagnosed with ILD in February 2024. COVID-19 and influenza screen
negative. No definitive consolidation suggestive of pneumonia noted on imaging. No pulmonary embolism reported.
-Discussed with patient's of the occupational therapy specialist, Dr. Weathers on 08/24.
-Clinically patient does not appear to be volume overloaded. Pro-BNP reassuring
-s/p Solu-Medrol 60 mg IV x 1 08/23, now on Prednisone 40 mg daily with PJP prophyalxis
-Considering patient's symptoms worsened after dropping the steroid dose, will need to consider a steroid sparing agent going forward possibly mycophenolate versus azathioprine. This will need to be discussed with patient's primary occupational therapy specialist
and can be pursued as outpatient
-No indication for antibiotics.
Other medical diagnoses:
-Paroxysmal A fib, s/p PPI, on moth exterminator Anticoagulation
-HTN
I called and discussed with patient's occupational therapy specialist, Dr. Weathers and went over previous images shared by him (08/24)
Counseled patient regarding treatment plan. Patient expressed that he wants to move to this area and would like to follow-up with our practice eventually. As per patient request, information entered in the discharge folder.
Total time spent on this consultation/encounter _40___ minutes which includes review of history, physical exam, medications, laboratory data, personal review of imaging, extensive review of outpatient records, discussion with care team and
respiratory therapy.
Data:
CT Chest 08/2024: 1. MODERATE INFLAMMATORY INTERSTITIAL PNEUMONITIS in the periphery of both lungs (possibly nonspecific interstitial pneumonitis - NSIP).
2. Severe calcific atherosclerotic plaque in the coronary arteries.
3. Moderate elevation of the right hemidiaphragm.
4. 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
5. 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
CXR 08/2024: Elevated right hemidiaphragm.
Some predominantly interstitial opacities which although may be chronic, cannot exclude interstitial pneumonitis or edema.
Subjective Data
-
Date of Service:
Date of Service: August 25, 2024
Subjective:
Patient comfortably sitting in bed, no acute distress.
Review of Systems
Genitourinary: Other (All 14 systems reviewed and negative except as stated above in the history of present illness.)
Objective Data
Data Reviewed
Vital Signs / I&O / Oxygen:
Vital Signs
Temp Pulse Resp BP Pulse Ox
97.8 F 62 20 141/86 95
08/25/24 07:30 08/25/24 07:30 08/25/24 07:30 08/25/24 08:15 08/25/24 08:00
Intake and Output
08/24/24 08/25/24 08/26/24
06:59 06:59 06:59
Intake Total 480 / 480 1080 / 1080
Output Total 1000 / 1000 1700 / 1700
Balance -520 / -520 -620 / -620
SaO2 95
Nasal Cannula flow liters per 2
minute
Physical Exam
General: Comfortable
HEENT: Normocephalic
Cardiovascular: S1-S2
Respiratory: Clear and Non-Labored Respirations
GI: Soft and Non Distended
Neurology: Awake and Alert
Skin: Warm
Labs/Micro/Reports
Lab Data
08/24/24 07:21
08/24/24 07:21
Microbiology
08/23/24 03:58 Nasal Swab Influenza Types A & B (FABIAN) - Final
Negative for Influenza A & B, NAAT
Negative results must be combined with clinical observations
and patient history.
Nucleic Acid Amplification test (NAAT)performed on the
[employer] platform.
[2024-08-25 13:30] VITALS: BP 132/72
== END 2024-08-25 15:52 | disposition home or self-care (01) | DRG 196 ==
LOC: 4 WEST ACU 09:39
PROVIDERS: ADMITTING PHYSICIAN Internal Medicine; CONSULT PHYSICIAN Internal Medicine; EMERGENCY PHYSICIAN Student in an Organized Health Care Education/Training Program; FAMILY PHYSICIAN Specialist
DX: J84.114 Acute interstitial pneumonitis (principal); J96.21 Acute and chronic respiratory failure with hypoxia; I10 Essential (primary) hypertension; I48.0 Paroxysmal atrial fibrillation; E78.00 Pure hypercholesterolemia, unspecified; J84.89 Other specified interstitial pulmonary diseases; Z95.0 Presence of cardiac pacemaker; Z99.81 Dependence on supplemental oxygen; Z87.891 Personal history of nicotine dependence; Z79.899 Other long term (current) drug therapy; Z79.52 Long term (current) use of systemic steroids; Z79.01 Long term (current) use of anticoagulants; Z79.82 Long term (current) use of aspirin; Z11.52 Encounter for screening for COVID-19
CPT/HCPCS: 71046; 71275; 80048; 80053; 83880; 84484; 85025; 85027; 85652; 86140; 87502; 87811; 93005; 99285; Q9967

== ENCOUNTER → 2025-03-02 13:54 | Outpatient (REF) | payer MEDICARE, OTHER, SELFPAY | LOC: RAD 13:54 | PROVIDERS: ATTENDING PHYSICIAN Internal Medicine; REFERRING PHYSICIAN Internal Medicine Cardiovascular Disease | DX: J84.89 Other specified interstitial pulmonary diseases (principal) | CPT/HCPCS: 71250 ==